=== PATIENT | male | born 1965 | race African-American/Black ===

== ENCOUNTER → 2024-04-13 07:54 | Outpatient (REF) | payer BC, SELFPAY | LOC: RAD 07:54 | PROVIDERS: ATTENDING PHYSICIAN Nurse Practitioner Adult Health | DX: K21.9 Gastro-esophageal reflux disease without esophagitis (principal); R10.9 Unspecified abdominal pain; R14.0 Abdominal distension (gaseous) | CPT/HCPCS: 76700 ==